=== PATIENT | female | born 1930 | race Caucasian/White ===

== ENCOUNTER 2018-11-13 18:24 | Emergency (ER) | payer MEDICAID, MEDICARE ==
--- NOTE | 2018-11-13 19:10 | EDM.PDOC ---
ED HPI GENERAL MEDICAL PROBLEM - General Chief Complaint: Head Injury Stated Complaint: MED VIA NORTH Time Seen by Provider: 11/13/18 19:03 Source of Information: Reports: Patient, Family, RN Notes Reviewed History Limitations: Reports: No Limitations, Physical Impairment - History of Present Illness INITIAL COMMENTS - FREE TEXT/NARRATIVE: 88-year-old female presents to the emergency department today following a fall in the long term she does have a history of dementia is currently on Coumadin or atrial fibrillation arrived by EMS she is complaining of neck pain no other symptoms at this time - Related Data Allergies Allergy/AdvReac Type Severity Reaction Status Date / Time RED Inhibitors Allergy Cannot Verified 08/23/18 11:23 Remember acetaminophen Allergy Cannot Verified 08/23/18 11:23 [From Coricidin] Remember amlodipine [From Norvasc] Allergy Cannot Verified 08/23/18 11:23 Remember chlorpheniramine Allergy Cannot Verified 08/23/18 11:23 [From Coricidin] Remember citalopram [From Celexa] Allergy Cannot Verified 08/23/18 11:23 Remember phenylephrine Allergy Cannot Verified 08/23/18 11:23 Remember phenylpropanolamine Allergy Cannot Verified 08/23/18 11:23 [From Coricidin] Remember sertraline [From Zoloft] Allergy Cannot Verified 08/23/18 11:23 Remember Home Meds: Home Meds Acetaminophen [Tylenol] 500 mg PO BID 08/23/18 [History] Carvedilol [Coreg] 12.5 mg PO BID 08/23/18 [History] Cholecalciferol (Vitamin D3) [Vitamin D3] 1,000 unit PO DAILY 08/23/18 [History] FLUoxetine [PROzac] 20 mg PO DAILY 08/23/18 [History] Lactose-Reduced Food [Ensure] 118 ml PO BID 08/23/18 [History] Magnesium Hydroxide [Milk of Magnesia] 30 ml PO DAILY PRN 08/23/18 [History] Pravastatin Sodium [Pravastatin (Pravachol)] 1 tab PO DAILY 08/23/18 [History] Warfarin [Coumadin] 1.25 mg PO ASDIRECTED 08/23/18 [History] Warfarin [Coumadin] 2.5 mg PO ASDIRECTED 08/23/18 [History] Past Medical History HEENT History: Reports: Impaired Vision Cardiovascular History: Reports: Afib, CAD, Heart Failure, High Cholesterol, Pacemaker, Other (See Below) Other Cardiovascular History: thoracic aortic atherosclerosis Respiratory History: Reports: COPD Genitourinary History: Reports: Other (See Below) Other Genitourinary History: kidney disease 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: Musculoskeletal History: Reports: Osteoarthritis Psychiatric History: Reports: Anxiety, Dementia, Depression - Infectious Disease History Infectious Disease History: Reports: Chicken Pox - Past Surgical History GI Surgical History: Reports: Colonoscopy Social & Family History - Tobacco Use Smoking Status *Q: Never Smoker - Caffeine Use Caffeine Use: Reports: Coffee - Recreational Drug Use Recreational Drug Use: No ED ROS GENERAL - Review of Systems Review Of Systems: See Below Constitutional: Reports: No Symptoms Respiratory: Reports: No Symptoms Cardiovascular: Reports: Dyspnea on Exertion GI/Abdominal: Reports: No Symptoms Musculoskeletal: Reports: Neck Pain ED EXAM, HEAD INJURY - Physical Exam Exam: See Below Exam Limited By: Physical Impairment General Appearance: Alert, No Apparent Distress Head: Atraumatic, Normocephalic Nexus Criteria: Posterior, Midline Cervical Tenderness. No: Evidence of Intoxication, Altered Level of Consciousness, Focal Neurological Deficit, Painful Distraction Injuries Eyes: Bilateral Eye: EOMI, Normal Inspection, PERRL Ears: Normal External Exam, Normal Canal, Hearing Grossly Normal, Normal TMs Nose: Normal Inspection, Normal Mucousa, No Blood Throat/Mouth: Normal Inspection, Normal Lips, Normal Teeth, Normal Gums, Normal Oropharynx, Normal Voice, No Airway Compromise Neck: Normal Inspection Respiratory: No Respiratory Distress, Lungs Clear, Normal Breath Sounds, No Accessory Muscle Use Cardiovascular: Irregularly Irregular GI/Abdominal Exam: Soft, Non-Tender Course - Vital Signs Last Recorded V/S: Last Vital Signs Temp 97.7 F 11/13/18 18:40 Pulse 72 11/13/18 18:40 Resp 16 11/13/18 18:40 BP 162/101 H 11/13/18 18:40 Pulse Ox 98 11/13/18 18:40 Departure - Departure Time of Disposition: 21:15 Disposition: Home, Self-Care 01 Condition: Fair Clinical Impression: Head injury Qualifiers: Encounter type: initial encounter Qualified Code(s): S09.90XA - Unspecified injury of head, initial encounter - Discharge Information Referrals: Mag Robb PA [Primary Care Provider] - Forms: ED Department Discharge Additional Instructions: Follow-up with primary care as needed call return to the emergency department worsening of symptoms - Assessment/Plan Plan: Assessment Acuity = acute Site and laterality = head injury Etiology = secondary to a fall Manifestations = none Location of injury = Home Lab values = CT scan of the head and neck show no acute process Plan Discharge to long term follow-up primary care as needed This note was dictated using [employer] voice recognition software please call with any questions on syntax or grammar.
--- NOTE | 2018-11-13 20:50 | CRLCT ---
INDICATION: Fall with neck pain TECHNIQUE: CT cervical spine without contrast. COMPARISON: None FINDINGS: Vertebrae: Alignment is normal. There are no fractures or suspicious bony lesions. Discs and facet joints: There are degenerative disc changes most severe at C3-4, C4-5, C5-6 and C6-7. There are multilevel degenerative changes in the facets. Extraspinal findings: Paraspinous soft tissues are unremarkable. IMPRESSION: 1. No sign of acute injury. 2. Multilevel degenerative spondylosis. Dictated by Obinna Travis MD @ 11/13/2018 8:49:00 PM Please note that all CT scans at this facility use dose modulation, iterative reconstruction, and/or weight-based dosing when appropriate to reduce radiation dose to as low as reasonably achievable. Dictated by: Obinna Travis MD @ 11/13/2018 20:49:06 (Electronically Signed)
--- NOTE | 2018-11-13 20:54 | CRLCT ---
INDICATION: Fall and pain TECHNIQUE: Head CT without contrast. COMPARISON: None. FINDINGS: CSF spaces: Within normal limits for age. Brain parenchyma: There are nonspecific low attenuation white matter changes consistent with chronic microvascular disease. No sign of mass, hemorrhage, or midline shift. Skull base and calvarium: The visualized paranasal sinuses and mastoid air cells are clear. The visualized orbits are grossly unremarkable. No skull fractures. There is intracranial atherosclerosis. IMPRESSION: 1. No acute findings. 2. Nonspecific white matter disease, typical of chronic microvascular disease. Please note that all CT scans at this facility use dose modulation, iterative reconstruction, and/or weight-based dosing when appropriate to reduce radiation dose to as low as reasonably achievable. Dictated by: Obinna Travis MD @ 11/13/2018 20:53:09 (Electronically Signed)
== END 2018-11-13 21:26 | disposition home or self-care (01) ==
LOC: JP.ED 18:24
DX: S09.90XA Unspecified injury of head, initial encounter (principal); F41.9 Anxiety disorder, unspecified; I48.91 Unspecified atrial fibrillation; I50.9 Heart failure, unspecified; J44.9 Chronic obstructive pulmonary disease, unspecified; Z88.8 Allergy status to other drugs, medicaments and biological substances; Z88.6 Allergy status to analgesic agent; Z79.899 Other long term (current) drug therapy; Z79.01 Long term (current) use of anticoagulants; W19.XXXA Unspecified fall, initial encounter; Y92.009 Unspecified place in unspecified non-institutional (private) residence as the place of occurrence of the external cause; Y92.129 Unspecified place in nursing home as the place of occurrence of the external cause
CPT/HCPCS: 70450; 72125; 99282; 99284-25

== ENCOUNTER 2019-01-09 14:55 | Emergency (ER) | payer MEDICARE ==
--- NOTE | 2019-01-09 15:34 | CRLCR ---
Indication: Candace, hypoxia Technique: Chest 1 view Comparison: None Findings/Impression: Cardiomegaly. Dual lead left pacemaker present with lead tips projecting over the right atrium and right ventricle. The pace maker wires appear intact. Normal pulmonary vasculature. No effusion, pneumothorax, or focal infiltrate. Osteopenia. Degenerative changes in the spine. Dictated by Gloria Butler MD @ Jan 09 2019 3:32PM Signed by Dr. Gloria Butler @ Jan 09 2019 3:33PM
--- NOTE | 2019-01-09 16:00 | EDM.PDOC ---
ED HPI GENERAL MEDICAL PROBLEM - General Chief Complaint: Respiratory Problem Stated Complaint: MEDICAL VIA [facility] Time Seen by Provider: 01/09/19 15:10 Source of Information: Reports: Patient, EMS, Family History Limitations: Reports: No Limitations - History of Present Illness INITIAL COMMENTS - FREE TEXT/NARRATIVE: 88-year-old female who had a coughing spell at her assisted living, had difficulty breathing so the ambulance was called. It was felt be EMS she was likely in pulmonary edema so in route she was given IV nitroglycerin and aspirin. Her symptoms resolved in transfer, and according to the daughter this happen several times yearly. Apparently there is an anxiety component as well. The patient now complains of no pain, shortness of breath, cough or fever. She arrived with CPAP in place as well as IV nitroglycerin at 80 mcg/m. 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) (iV nitroglycerin) denies Pain Score (Numeric/FACES): 0 - Related Data Allergies Allergy/AdvReac Type Severity Reaction Status Date / Time RED Inhibitors Allergy Cannot Verified 01/09/19 15:08 Remember acetaminophen Allergy Cannot Verified 01/09/19 15:08 [From Coricidin] Remember amlodipine [From Norvasc] Allergy Cannot Verified 01/09/19 15:08 Remember chlorpheniramine Allergy Cannot Verified 01/09/19 15:08 [From Coricidin] Remember citalopram [From Celexa] Allergy Cannot Verified 01/09/19 15:08 Remember phenylephrine Allergy Cannot Verified 01/09/19 15:08 Remember phenylpropanolamine Allergy Cannot Verified 01/09/19 15:08 [From Coricidin] Remember sertraline [From Zoloft] Allergy Cannot Verified 01/09/19 15:08 Remember Home Meds: Home Meds Acetaminophen [Tylenol] 500 mg PO BID 08/23/18 [History] Carvedilol [Coreg] 12.5 mg PO BID 08/23/18 [History] Cholecalciferol (Vitamin D3) [Vitamin D3] 1,000 unit PO DAILY 08/23/18 [History] FLUoxetine [PROzac] 20 mg PO DAILY 08/23/18 [History] Lactose-Reduced Food [Ensure] 118 ml PO BID 08/23/18 [History] Magnesium Hydroxide [Milk of Magnesia] 30 ml PO DAILY PRN 08/23/18 [History] Pravastatin Sodium [Pravastatin (Pravachol)] 1 tab PO DAILY 08/23/18 [History] Warfarin [Coumadin] 2.5 mg PO ASDIRECTED 08/23/18 [History] Warfarin [Coumadin] 2.5 mg PO ASDIRECTED 08/23/18 [History] Past Medical History HEENT History: Reports: Impaired Vision Cardiovascular History: Reports: Afib, CAD, Heart Failure, High Cholesterol, Pacemaker, Other (See Below) Other Cardiovascular History: thoracic aortic atherosclerosis Respiratory History: Reports: COPD Genitourinary History: Reports: Other (See Below) Other Genitourinary History: kidney disease 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: Musculoskeletal History: Reports: Osteoarthritis Psychiatric History: Reports: Anxiety, Dementia, Depression - Infectious Disease History Infectious Disease History: Reports: Chicken Pox, Measles, Mumps - Past Surgical History GI Surgical History: Reports: Colonoscopy Social & Family History - Tobacco Use Smoking Status *Q: Never Smoker Second Hand Smoke Exposure: No - Caffeine Use Caffeine Use: Reports: Coffee - Recreational Drug Use Recreational Drug Use: No ED ROS GENERAL - Review of Systems Review Of Systems: See Below Constitutional: Denies: Fever, Chills HEENT: Reports: No Symptoms Respiratory: Reports: Shortness of Breath, Cough Cardiovascular: Denies: Chest Pain, Palpitations GI/Abdominal: Denies: Abdominal Pain, Nausea, Vomiting : Reports: No Symptoms Skin: Reports: No Symptoms Psychiatric: Reports: Anxiety ED EXAM, GENERAL - Physical Exam Exam: See Below Exam Limited By: No Limitations General Appearance: Alert, No Apparent Distress Throat/Mouth: Normal Inspection Head: Atraumatic Respiratory/Chest: No Respiratory Distress, Wheezing (A few scattered expiratory wheezes are heard but otherwise good air movement and no basilar rales) Cardiovascular: Irregularly Irregular GI/Abdominal: Soft, Non-Tender Extremities: Normal Inspection. No: Pedal Edema Neurological: Alert, Confused (Some chronic baseline confusion) Psychiatric: Normal Affect, Normal Mood Skin Exam: Warm, Dry Course - Vital Signs Last Recorded V/S: Last Vital Signs Temp 96.4 F 01/09/19 15:20 Pulse 89 01/09/19 16:00 Resp 20 01/09/19 16:00 BP 114/82 01/09/19 16:00 Pulse Ox 93 L 01/09/19 16:00 - Orders/Labs/Meds Labs: Laboratory Tests 01/09/19 01/09/19 Range/Units 15:00 15:00 WBC 8.7 (4.5-11.0) K/uL RBC 4.05 (3.30-5.50) M/uL Hgb 12.2 (12.0-15.0) g/dL Hct 38.9 (36.0-48.0) % MCV 96 (80-98) fL MCH 30 (27-31) pg MCHC 31 L (32-36) % Plt Count 163 (150-400) K/uL Neut % (Auto) 55 (36-66) % Lymph % (Auto) 32 (24-44) % [place] % (Auto) 11 H (2-6) % Eos % (Auto) 1 L (2-4) % Baso % (Auto) 1 (0-1) % Sodium 138 L (140-148) mmol/L Potassium 5.1 (3.6-5.2) mmol/L Chloride 102 (100-108) mmol/L Carbon Dioxide 31 (21-32) mmol/L Anion Gap 10.1 (5.0-14.0) mmol/L BUN 29 H (7-18) mg/dL Creatinine 1.3 H (0.6-1.0) mg/dL Est Cr Clr Drug Dosing 20.38 mL/min Estimated GFR (MDRD) 39 L (>60) Glucose 130 H (74-106) mg/dL Calcium 9.1 (8.5-10.1) mg/dL Troponin I 0.020 (0.000-0.056) ng/mL - Re-Assessments/Exams Free Text/Narrative Re-Assessment/Exam: 01/09/19 15:58 On arrival to CPAP was removed and nitroglycerin stopped. She remained stable and asymptomatic. A chest x-ray showed cardiomegaly but no congestive heart failure or effusions. Troponin was 0.02, electrolytes were basically normal. Her daughter was comfortable taking her back without treatment. Departure - Departure Time of Disposition: 16:23 Disposition: DC/Tfer to Humanities Coordinator [facility] 62 Clinical Impression: Dyspnea Qualifiers: Dyspnea type: shortness of breath Qualified Code(s): R06.02 - Shortness of breath - Discharge Information Instructions: Shortness of Breath, Adult, [id number] Referrals: Mag Robb PA [Primary Care Provider] - Forms: ED Department Discharge Care Plan Goals: Continue current treatments and medications. Consider 2 puffs of an albuterol inhaler for shortness of breath or wheezing prior to transfer if symptoms recur.
== END 2019-01-09 16:23 ==
LOC: JP.ED 14:55
DX: R06.02 Shortness of breath (principal); F41.9 Anxiety disorder, unspecified; F32.9 Major depressive disorder, single episode, unspecified; I48.91 Unspecified atrial fibrillation; I50.9 Heart failure, unspecified; I25.10 Atherosclerotic heart disease of native coronary artery without angina pectoris; J44.9 Chronic obstructive pulmonary disease, unspecified; Z79.899 Other long term (current) drug therapy; Z88.8 Allergy status to other drugs, medicaments and biological substances; Z88.6 Allergy status to analgesic agent
CPT/HCPCS: 36415; 71045; 80048; 84484; 85025; 99284-25

== ENCOUNTER 2019-02-26 10:51 | Inpatient (IN) | payer MEDICARE ==
--- NOTE | 2019-02-26 11:40 | EDM.PDOC ---
ED HPI GENERAL MEDICAL PROBLEM - General Chief Complaint: Lower Extremity Injury/Pain Stated Complaint: FELL X2 LAST NIGHT INJURED HIP Time Seen by Provider: 02/26/19 11:21 Source of Information: Reports: Family History Limitations: Reports: Other (dementia) - History of Present Illness INITIAL COMMENTS - FREE TEXT/NARRATIVE: Fell two times in NH yesterday; usually up walking with walker however unable to bear weight; has dementia; poor historian Onset Date: 02/25/19 Location: Reports: Pelvis, Other (bilateral hips) Quality: Reports: Sharp, Stabbing Severity: Moderate Improves with: Reports: None Worsens with: Reports: None Left Hip Pain Score (Numeric/FACES): 8 - Related Data Allergies Allergy/AdvReac Type Severity Reaction Status Date / Time RED Inhibitors Allergy Cannot Verified 02/26/19 11:17 Remember acetaminophen Allergy Cannot Verified 02/26/19 11:17 [From Coricidin] Remember amlodipine [From Norvasc] Allergy Cannot Verified 02/26/19 11:17 Remember chlorpheniramine Allergy Cannot Verified 02/26/19 11:17 [From Coricidin] Remember citalopram [From Celexa] Allergy Cannot Verified 02/26/19 11:17 Remember phenylephrine Allergy Cannot Verified 02/26/19 11:17 Remember phenylpropanolamine Allergy Cannot Verified 02/26/19 11:17 [From Coricidin] Remember sertraline [From Zoloft] Allergy Cannot Verified 02/26/19 11:17 Remember Home Meds: Home Meds Acetaminophen [Tylenol] 500 mg PO BID 08/23/18 [History] Carvedilol [Coreg] 12.5 mg PO BID 08/23/18 [History] Cholecalciferol (Vitamin D3) [Vitamin D3] 1,000 unit PO DAILY 08/23/18 [History] FLUoxetine [PROzac] 20 mg PO DAILY 08/23/18 [History] Lactose-Reduced Food [Ensure] 118 ml PO BID 08/23/18 [History] Magnesium Hydroxide [Milk of Magnesia] 30 ml PO DAILY PRN 08/23/18 [History] Pravastatin Sodium [Pravastatin (Pravachol)] 1 tab PO DAILY 08/23/18 [History] Warfarin [Coumadin] 2.5 mg PO ASDIRECTED 08/23/18 [History] Warfarin [Coumadin] 3.75 mg PO ASDIRECTED 08/23/18 [History] Albuterol [Ventolin HFA] 1 - 2 puff .XX Q4H PRN 02/26/19 [History] Past Medical History HEENT History: Reports: Impaired Vision Cardiovascular History: Reports: Afib, CAD, Heart Failure, High Cholesterol, Pacemaker, Other (See Below) Other Cardiovascular History: thoracic aortic atherosclerosis Respiratory History: Reports: COPD Genitourinary History: Reports: Other (See Below) Other Genitourinary History: kidney disease 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: Musculoskeletal History: Reports: Osteoarthritis Psychiatric History: Reports: Anxiety, Dementia, Depression - Infectious Disease History Infectious Disease History: Reports: C-Difficile - Past Surgical History GI Surgical History: Reports: Colonoscopy Social & Family History - Tobacco Use Smoking Status *Q: Never Smoker Second Hand Smoke Exposure: No - Caffeine Use Caffeine Use: Reports: Coffee, Soda - Recreational Drug Use Recreational Drug Use: No Review of Systems - Review of Systems Review Of Systems: Unable To Obtain (patient has dementia; poor historian) ED EXAM, GENERAL - Physical Exam Exam: See Below Exam Limited By: Altered Mental Status (dementia) General Appearance: Moderate Distress (with movement), Other (doesn't open eyes with command, moans) Head: Atraumatic, Normocephalic Neck: Normal Inspection, Supple, Non-Tender Respiratory/Chest: No Respiratory Distress Cardiovascular: Regular Rate, Rhythm, Systolic Murmur Peripheral Pulses: 2+: Posterior Tibial (L), Posterior Tibial (R), Dorsalis Pedis (L), Dorsalis Pedis (R) GI/Abdominal: Normal Bowel Sounds, Soft, No Mass Back Exam: Normal Inspection Extremities: Normal Inspection Neurological: Other (dementia; doesn't answer questions, moans with movement; doesn't follow command) Skin Exam: Warm, Dry, Intact, Normal Color Course - Vital Signs Last Recorded V/S: Last Vital Signs Temp 98.1 F 02/26/19 17:41 Pulse 90 02/26/19 17:41 Resp 18 02/26/19 17:41 BP 155/94 H 02/26/19 17:41 Pulse Ox 93 L 02/26/19 17:41 - Orders/Labs/Meds Orders: Active Orders 24 hr Category Date Time Status Peripheral IV Care [RC] . DIRECTED Care 02/26/19 12:25 Active Hip Min 2V or 3V Lt [CR] Stat Exams 02/26/19 11:33 Taken UA W/MICROSCOPIC [URIN] Stat Lab 02/26/19 16:50 Ordered Sodium Chloride 0.9% [Saline Flush] Med 02/26/19 12:24 Active 10 ml FLUSH ASDIRECTED PRN Peripheral IV Insertion Adult [OM.PC] Stat Oth 02/26/19 12:24 Ordered Medication Orders Acetaminophen (Tylenol Extra Strength) 1,000 mg PO TID AMBER Carvedilol (Coreg) 12.5 mg PO BID AMBER Fluoxetine HCl (Prozac) 20 mg PO DAILY AMBER Magnesium Hydroxide (Milk Of Magnesia) 30 ml PO Q12H PRN PRN Reason: Constipation Melatonin (Melatonin) 9 mg PO BEDTIME AMBER Ondansetron HCl (Zofran Odt) 4 mg PO Q6H PRN PRN Reason: Nausea able to take PO Ondansetron HCl (Zofran) 4 mg IV Q6H PRN PRN Reason: Nausea/Vomiting Oxycodone HCl (Oxycodone) 5 mg PO Q4H PRN PRN Reason: Pain Pravastatin Sodium (Pravachol) 40 mg PO DAILY AMBER Senna/Docusate Sodium (Senna Plus) 1 tab PO BID PRN PRN Reason: Constipation Sodium Chloride (Saline Flush) 10 ml FLUSH ASDIRECTED PRN PRN Reason: Keep Vein Open Last Admin: 02/26/19 13:00 Dose: 10 ml Labs: Laboratory Tests 02/26/19 02/26/19 02/26/19 Range/Units 16:37 16:37 16:37 WBC 13.6 H (4.5-11.0) K/uL RBC 3.86 (3.30-5.50) M/uL Hgb 11.5 L (12.0-15.0) g/dL Hct 36.5 (36.0-48.0) % MCV 95 (80-98) fL MCH 30 (27-31) pg MCHC 32 (32-36) % Plt Count 151 (150-400) K/uL Neut % (Auto) 50 (36-66) % Lymph % (Auto) 35 (24-44) % [place] % (Auto) 10 H (2-6) % Eos % (Auto) 4 (2-4) % Baso % (Auto) 1 (0-1) % PT 28.2 H (9.5-12.0) sec INR 2.71 H (0.80-1.20) Sodium 142 (140-148) mmol/L Potassium 3.9 (3.6-5.2) mmol/L Chloride 105 (100-108) mmol/L Carbon Dioxide 28 (21-32) mmol/L Anion Gap 9.3 (5.0-14.0) mmol/L BUN 29 H (7-18) mg/dL Creatinine 1.3 H (0.6-1.0) mg/dL Est Cr Clr Drug Dosing 19.96 mL/min Estimated GFR (MDRD) 39 L (>60) Glucose 106 (74-106) mg/dL Calcium 8.7 (8.5-10.1) mg/dL Meds: Medications Generic Name Dose Route Start Last Admin Trade Name Freq PRN Reason Stop Dose Admin Acetaminophen 1,000 mg 02/26/19 21:00 Tylenol Extra Strength PO TID ON LICENSE OF [facility] Carvedilol 12.5 mg 02/26/19 21:00 Coreg PO BID AMBER Fluoxetine HCl 20 mg 02/27/19 09:00 Prozac PO DAILY AMBER Magnesium Hydroxide 30 ml 02/26/19 19:12 Milk Of Magnesia PO Q12H PRN Constipation Melatonin 9 mg 02/26/19 21:00 Melatonin PO BEDTIME AMBER Ondansetron HCl 4 mg 02/26/19 19:12 Zofran Odt PO Q6H PRN Nausea able to take PO Ondansetron HCl 4 mg 02/26/19 19:12 Zofran IV Q6H PRN Nausea/Vomiting Oxycodone HCl 5 mg 02/26/19 19:12 Oxycodone PO Q4H PRN Pain Pravastatin Sodium 40 mg 02/27/19 09:00 Pravachol PO DAILY ON LICENSE OF [facility] Senna/Docusate Sodium 1 tab 02/26/19 19:12 Senna Plus PO BID PRN Constipation Sodium Chloride 10 ml 02/26/19 12:24 02/26/19 13:00 Saline Flush FLUSH 10 ml ASDIRECTED PRN Administration Keep Vein Open Discontinued Medications Generic Name Dose Route Start Last Admin Trade Name Freq PRN Reason Stop Dose Admin Morphine Sulfate 2 mg 02/26/19 12:24 02/26/19 13:03 Morphine IVPUSH 02/26/19 12:25 2 mg ONETIME ONE Administration Morphine Sulfate 1 mg 02/26/19 16:11 Morphine IVPUSH 02/26/19 16:12 ONETIME ONE - Radiology Interpretation Free Text/Narrative:: Bilateral pubic ramus fracture per xray; will get CT to see if it is displaced. Family member notified; CT Results Date: 02/26/19 (non displaced ramus fx) - Re-Assessments/Exams Free Text/Narrative Re-Assessment/Exam: 02/26/19 19:28 CT shows non displaced ramus fracture. Will admit for pain control Departure - Departure Time of Disposition: 16:51 Disposition: Refer to Observation Condition: Fair Clinical Impression: Pubic ramus fracture Qualifiers: Encounter type: initial encounter Fracture type: closed Laterality: left Qualified Code(s): S32.592A - Other specified fracture of left pubis, initial encounter for closed fracture - Discharge Information *PRESCRIPTION DRUG MONITORING PROGRAM REVIEWED*: No *COPY OF PRESCRIPTION DRUG MONITORING REPORT IN PATIENT JACE: No - Problem List & Annotations (1) Pubic ramus fracture SNOMED Code(s): 12589646 Code(s): S32.599A - OTH FRACTURE OF UNSP PUBIS, INIT ENCNTR FOR CLOSED FRACTURE Status: Acute Priority: Medium Current Visit: Yes Qualifiers: Encounter type: initial encounter Fracture type: closed Laterality: left Qualified Code(s): S32.592A - Other specified fracture of left pubis, initial encounter for closed fracture - My Orders Last 24 Hours: My Active Orders 02/26/19 11:33 Hip Min 2V or 3V Lt [CR] Stat 02/26/19 12:24 Sodium Chloride 0.9% [Saline Flush] 10 ml FLUSH ASDIRECTED PRN Peripheral IV Insertion Adult [OM.PC] Stat 02/26/19 12:25 Peripheral IV Care [RC] . DIRECTED - Assessment/Plan Last 24 Hours: My Active Orders 02/26/19 11:33 Hip Min 2V or 3V Lt [CR] Stat 02/26/19 12:24 Sodium Chloride 0.9% [Saline Flush] 10 ml FLUSH ASDIRECTED PRN Peripheral IV Insertion Adult [OM.PC] Stat 02/26/19 12:25 Peripheral IV Care [RC] . DIRECTED
[2019-02-26] MEDS ORDERED: Sodium Chloride 0.9% 10 ML Syringe FLUSH PRN (12:24)
[2019-02-26] MEDS ORDERED: Morphine 2 MG/ML Syringe IVPUSH ONE ×2 (12:24→16:11)
--- NOTE | 2019-02-26 13:28 | CRLCR ---
INDICATION: Pain following fall TECHNIQUE: AP pelvis and two views right left hips COMPARISON: None FINDINGS: Bones: Po bilateral superior pubic ramus fractures adjacent to the symphysis pubis. Joint spaces: Severe bilateral hip joint space narrowing with acetabular roof spurs. Soft tissues: Unremarkable. IMPRESSION: Bilateral superior pubic ramus fractures adjacent to the symphysis pubis. Bilateral hip joint degenerative changes. Dictated by Vinny Bang MD @ 02/26/2019 1:28:17 PM Dictated by: Vinny Bang MD @ 02/26/2019 13:28:24 (Electronically Signed)
--- NOTE | 2019-02-26 15:36 | CRLCT ---
HISTORY: Pelvis fracture. TECHNIQUE: CT pelvis without contrast. COMPARISON: Radiographs same day. FINDINGS: Nondisplaced acute fracture of the left inferior pubic ramus. Acute fracture of the left superior pubic ramus and pubic body. A few small cortical fragments it is from the pubic body are mildly displaced. No significant displacement otherwise. No proximal femur fracture. Severe osteoarthritis both hips, left greater than right. Degenerative changes of the pubic symphysis. No pubic symphysis widening or malalignment. Degenerative arthrosis of both sacroiliac joints. Lower lumbar spine disc and facet degenerative changes. Osteopenia. No lytic or blastic bone lesions. Mild fat stranding around the left pubic bone. No significant soft tissue hematoma. Atrophy of the gluteus minimus muscle bilaterally. Atherosclerotic calcifications. Colonic diverticulosis. IMPRESSION: 1. Nondisplaced acute fractures of the left superior pubic ramus, left pubic body, and left inferior pubic ramus. 2. Severe osteoarthritis of both hips, left greater than right. Dictated by Neymar Cullen MD @ 02/26/2019 3:34:27 PM Please note that all CT scans at this facility use dose modulation, iterative reconstruction, and/or weight-based dosing when appropriate to reduce radiation dose to as low as reasonably achievable. Dictated by: Neymar Cullen MD @ 02/26/2019 15:34:38 (Electronically Signed)
--- NOTE | 2019-02-26 17:02 | PCM.HP ---
H&P History of Present Illness - General Date of Service: 02/26/19 Admit Problem/Dx: Admission Diagnosis/Problem Admission Diagnosis/Problem Fracture of pelvis Source of Information: Family. No: Patient History Limitations: Reports: Altered Mental Status (dementia) - History of Present Illness Initial Comments - Free Text/Narative: CC: can't walk HPI: Kim presents to the emergency room today with left groin pain after 2 falls yesterday. She has advanced dementia and cannot provide reliable history. Per report from her daughter, the patient had 2 falls yesterday but seemed okay afterwards. Today at her assisted-living facility she had a great deal of difficulty bearing weight and appeared to be uncomfortable. She was sent to the emergency room for evaluation. X-ray imaging revealed a left superior ramus fracture and this was confirmed with a CT scan. The fracture is nondisplaced. The patient was able to tell me that she's having some discomfort in the left groin area but is not able to quantify or characterize the pain. She just tells me that it hurts down here and rubs her hand over the anterior left groin area. She doesn't think that she is short of breath. She does not currently report abdominal pain. Workup in the emergency room has revealed a pelvis fracture. The patient is not able to receive adequate care at her assisted-living facility. She will be admitted for pain control and physical therapy. Left Hip Pain Score (Numeric/FACES): 8 - Related Data Allergies/Adverse Reactions: Allergies Allergy/AdvReac Type Severity Reaction Status Date / Time RED Inhibitors Allergy Cannot Verified 02/26/19 11:17 Remember acetaminophen Allergy Cannot Verified 02/26/19 11:17 [From Coricidin] Remember amlodipine [From Norvasc] Allergy Cannot Verified 02/26/19 11:17 Remember chlorpheniramine Allergy Cannot Verified 02/26/19 11:17 [From Coricidin] Remember citalopram [From Celexa] Allergy Cannot Verified 02/26/19 11:17 Remember phenylephrine Allergy Cannot Verified 02/26/19 11:17 Remember phenylpropanolamine Allergy Cannot Verified 02/26/19 11:17 [From Coricidin] Remember sertraline [From Zoloft] Allergy Cannot Verified 02/26/19 11:17 Remember Home Medications: Home Meds Acetaminophen [Tylenol] 500 mg PO BID 08/23/18 [History] Carvedilol [Coreg] 12.5 mg PO BID 08/23/18 [History] Cholecalciferol (Vitamin D3) [Vitamin D3] 1,000 unit PO DAILY 08/23/18 [History] FLUoxetine [PROzac] 20 mg PO DAILY 08/23/18 [History] Lactose-Reduced Food [Ensure] 118 ml PO BID 08/23/18 [History] Magnesium Hydroxide [Milk of Magnesia] 30 ml PO DAILY PRN 08/23/18 [History] Pravastatin Sodium [Pravastatin (Pravachol)] 1 tab PO DAILY 08/23/18 [History] Warfarin [Coumadin] 2.5 mg PO ASDIRECTED 08/23/18 [History] Warfarin [Coumadin] 3.75 mg PO ASDIRECTED 08/23/18 [History] Albuterol [Ventolin HFA] 1 - 2 puff .XX Q4H PRN 02/26/19 [History] Past Medical History HEENT History: Reports: Impaired Vision Cardiovascular History: Reports: Afib, CAD, Heart Failure, High Cholesterol, Pacemaker, Other (See Below) Other Cardiovascular History: thoracic aortic atherosclerosis Respiratory History: Reports: COPD Genitourinary History: Reports: Other (See Below) Other Genitourinary History: kidney disease [employer] History: Reports: Musculoskeletal History: Reports: Osteoarthritis Psychiatric History: Reports: Anxiety, Dementia, Depression - Infectious Disease History Infectious Disease History: Reports: C-Difficile - Past Surgical History GI Surgical History: Reports: Colonoscopy Social & Family History - Family History Musculoskeletal: Reports: RA (daughter) - Tobacco Use Smoking Status *Q: Never Smoker Second Hand Smoke Exposure: No - Caffeine Use Caffeine Use: Reports: Coffee, Soda - Alcohol Use Alcohol Use History: No - Recreational Drug Use Recreational Drug Use: No H&P Review of Systems - Review of Systems: Review Of Systems: Unable To Obtain (advanced dementia, hx unreliable) Exam - Exam Exam: See Below - Vital Signs Vital Signs: Last Vital Signs Temp 35.5 C 02/26/19 15:55 Pulse 95 02/26/19 15:55 Resp 16 02/26/19 15:55 BP 148/103 H 02/26/19 15:55 Pulse Ox 93 L 02/26/19 15:55 Weight: 43.091 kg - Exam Quality Assessment: No: Supplemental Oxygen General: Alert, Cooperative. No: Oriented, Mild Distress HEENT: Conjunctiva Clear. No: Mucosa Moist & [place] (dry), Scleral Icterus Neck: Supple, Trachea Midline. No: Lymphadenopathy Lungs: Clear to Auscultation, Normal Respiratory Effort Cardiovascular: Regular Rate, Regular Rhythm, Systolic Murmur GI/Abdominal Exam: Normal Bowel Sounds, Soft, No Distention, Tender (mild generalized ) Extremities: No Pedal Edema. No: Increased Warmth Peripheral Pulses: 2+: Dorsalis Pedis (L), Dorsalis Pedis (R) Skin: Warm, Dry Neuro Extensive - Mental Status: Alert, Nl Response to Commands. No: Oriented x3 Neuro Extensive - Motor, Sensory, Reflexes: No: Dysarthria, Abnormal Motor, Tremor Psychiatric: Alert, Normal Affect. No: Agitated - Patient Data Lab Results Last 24 hrs: Laboratory Results - last 24 hr 02/26/19 02/26/19 02/26/19 Range/Units 16:37 16:37 16:37 WBC 13.6 H (4.5-11.0) K/uL RBC 3.86 (3.30-5.50) M/uL Hgb 11.5 L (12.0-15.0) g/dL Hct 36.5 (36.0-48.0) % MCV 95 (80-98) fL MCH 30 (27-31) pg MCHC 32 (32-36) % Plt Count 151 (150-400) K/uL Neut % (Auto) 50 (36-66) % Lymph % (Auto) 35 (24-44) % [place] % (Auto) 10 H (2-6) % Eos % (Auto) 4 (2-4) % Baso % (Auto) 1 (0-1) % PT 28.2 H (9.5-12.0) sec INR 2.71 H (0.80-1.20) Sodium 142 (140-148) mmol/L Potassium 3.9 (3.6-5.2) mmol/L Chloride 105 (100-108) mmol/L Carbon Dioxide 28 (21-32) mmol/L Anion Gap 9.3 (5.0-14.0) mmol/L BUN 29 H (7-18) mg/dL Creatinine 1.3 H (0.6-1.0) mg/dL Est Cr Clr Drug Dosing 19.96 mL/min Estimated GFR (MDRD) 39 L (>60) Glucose 106 (74-106) mg/dL Calcium 8.7 (8.5-10.1) mg/dL Result Diagrams: 02/26/19 16:37 02/26/19 16:37 Imaging Impressions Last 24 hrs: Pelvis XR - images personally reviewed - there is a fracture of the left superior pubic ramus Pelvis CT - Images also personally reviewed - non-displaced left superior pubic ramus fracture *Q Meaningful Use (ADM) - VTE Risk Assess *Q Each Risk Factor Represents 1 Point: Congestive heart failure (CHF) Total Score 1 Point Risk Factors: 1 Each Risk Factor Represents 2 Points: None Total Score 2 Point Risk Factors: 0 Each Risk Factor Represents 3 Points: Age 75 Years or Greater Total Score 3 Point Risk Factors: 3 Each Risk Factor Represents 5 Points: Hip, Pelvis or Leg Fracture, Less than 1 month Total Score 5 Point Risk Factors: 5 Venous Thromboembolism Risk Factor Score *Q: 9 - Problem List (1) Pubic ramus fracture SNOMED Code(s): 37448160 ICD Code: S32.599A - OT FRACTURE OF UNSP PUBIS, INIT ENCNTR FOR CLOSED FRACTURE Status: Acute Priority: Medium Current Visit: Yes Qualifiers: Encounter type: initial encounter Fracture type: closed Laterality: left Qualified Code(s): S32.592A - Other specified fracture of left pubis, initial encounter for closed fracture (2) Alzheimer's dementia without behavioral disturbance SNOMED Code(s): 12003887 ICD Code: G30.9 - ALZHEIMER'S DISEASE, UNSPECIFIED; F02.80 - DEMENTIA IN OTH DISEASES CLASSD ELSWHR W/O BEHAVRL DISTURB Status: Chronic Current Visit: Yes Qualifiers: Alzheimer's disease onset: late-onset Qualified Code(s): G30.1 - Alzheimer' s disease with late onset; F02.80 - Dementia in other diseases classified elsewhere without behavioral disturbance (3) CHF (congestive heart failure) SNOMED Code(s): 91897467 ICD Code: I50.9 - HEART FAILURE, UNSPECIFIED Status: Chronic Current Visit: Yes Qualifiers: Heart failure type: unspecified Heart failure chronicity: chronic Qualified Code(s): I50.9 - Heart failure, unspecified (4) Chronic atrial fibrillation SNOMED Code(s): 259645524 ICD Code: I48.2 - CHRONIC ATRIAL FIBRILLATION Status: Chronic Current Visit: Yes Problem List Initiated/Reviewed/Updated: Yes Orders Last 24hrs: Active Orders 24 hr Category Date Time Status Patient Status Manage Transfer [TRANSFER] Routine ADT 02/26/19 16:52 Ordered Peripheral IV Care [RC] . DIRECTED Care 02/26/19 12:25 Active Hip Min 2V or 3V Lt [CR] Stat Exams 02/26/19 11:33 Ordered UA W/MICROSCOPIC [URIN] Stat Lab 02/26/19 16:50 Ordered Sodium Chloride 0.9% [Saline Flush] Med 02/26/19 12:24 Active 10 ml FLUSH ASDIRECTED PRN Peripheral IV Insertion Adult [OM.PC] Stat Oth 02/26/19 12:24 Ordered Resuscitation Status Routine Resus Stat 02/26/19 16:53 Ordered Medication Orders Sodium Chloride (Saline Flush) 10 ml FLUSH ASDIRECTED PRN PRN Reason: Keep Vein Open Last Admin: 02/26/19 13:00 Dose: 10 ml Assessment/Plan Comment:: ASSESSMENT AND PLAN - Nondisplaced traumatic fracture of the left superior pubic ramus - secondary to fall at her assisted-living yesterday. The patient is not able to bear any weight. She has required IV medications for pain control. With her advanced dementia and advanced age I believe it may take several days to find an appropriate pain control regimen as well as a safe discharge plan. -Scheduled acetaminophen -As needed oxycodone -Weightbearing as tolerated -Physical therapy -Discharge planning consultation for probable senior living placement Advanced dementia, Alzheimer's - no behavioral disturbances at this time. Patient is a high fall risk. She has had some mood swings lately and this has been a sign of urinary tract infection in the past. -Urine sample to rule out infection -Melatonin at bedtime -Consider low-dose Haldol if she becomes agitated Congestive heart failure - history of, well compensated at this time. -Continue carvedilol Chronic atrial fibrillation - currently rate controlled. Chronically anticoagulated. INR is therapeutic. -Hold warfarin today -INR tomorrow and reassess warfarin dosing then Maintenance issues - - DVT prophylaxis - warfarin - GI prophylaxis - not indicated - Nutrition - regular - Silva catheter - not indicated CODE STATUS - DNR/DNI per advance directive and discussion with daughter Admission justification - This patient will be admitted for inpatient services and is medically appropriate meeting medical necessity for inpatient admission as outlined in my documentation. I reasonably expect the patient will require inpatient services that span a period time over 2 midnights. I reasonably expect this patient to be discharged or transferred within 96 hours after admission to the [facility]. The patient has required IV pain medications in the emergency room, she is of advanced age and has Alzheimer's dementia. Both of the above issues will complicate managing her pelvic fracture and complicate her recovery and her hospital stay. Disposition - I would anticipate discharge to a [facility] facility for subacute rehabilitation Primary care physician - Mag Victor M.D.
[2019-02-26] MEDS ORDERED: Magnesium Hydroxide 400 MG/5 ML Susp 30 ML Cup PO PRN (19:12)
[2019-02-26] MEDS ORDERED: Ondansetron 4 MG Tab.DIS PO PRN (19:12)
[2019-02-26] MEDS ORDERED: Ondansetron 4 MG/2 ML SDV IV PRN (19:12)
[2019-02-26] MEDS ORDERED: Haloperidol Lactate 5 MG/ML SDV IVPUSH PRN (20:06)
[2019-02-26] MEDS: Morphine 2 MG/ML Syringe IVPUSH PRN (20:28)
[2019-02-26] MEDS: Melatonin 3 MG Tab PO SCH (20:28)
[2019-02-26] MEDS: oxyCODONE 5 MG Tab PO PRN (20:28)
[2019-02-26] MEDS: Acetaminophen 500 MG Tab PO SCH (20:29)
[2019-02-26] MEDS: Carvedilol 12.5 MG Tab PO SCH (20:29)
[2019-02-27] MEDS: Morphine 2 MG/ML Syringe IVPUSH PRN ×3 (00:04→21:49)
[2019-02-27] MEDS: Carvedilol 12.5 MG Tab PO SCH ×3 (08:50→20:23)
[2019-02-27] MEDS: Pravastatin 20 MG Tab PO SCH (08:51)
[2019-02-27] MEDS: Acetaminophen 500 MG Tab PO SCH ×4 (08:51→20:24)
[2019-02-27] MEDS: FLUoxetine 20 MG Cap PO SCH (08:51)
[2019-02-27] MEDS: oxyCODONE 5 MG Tab PO PRN (08:54)
--- NOTE | 2019-02-27 10:07 | PCM.PN ---
- General Info Date of Service: 02/27/19 Subjective Update: No acute events overnight. Pt lethargic and not able to provide reliable hx this morning. She received several doses of oral and IV pain medication overnight. She appears comfortable this morning but falls asleep fairly quickly after waking up to checked. She has not had any fevers. Urine sample did not suggest infection. She has not been out of bed yet today. Has not had anything to eat. - Review of Systems General: Denies: Fever - Patient Data Vitals - Most Recent: Last Vital Signs Temp 36.2 C 02/27/19 09:30 Pulse 130 H 02/27/19 09:30 Resp 18 02/27/19 09:30 BP 189/120 H 02/27/19 09:30 Pulse Ox 94 L 02/27/19 09:30 Weight - Most Recent: 43.091 kg Lab Results Last 24 Hours: Laboratory Results - last 24 hr 02/26/19 02/26/19 02/26/19 Range/Units 16:37 16:37 16:37 WBC 13.6 H (4.5-11.0) K/uL RBC 3.86 (3.30-5.50) M/uL Hgb 11.5 L (12.0-15.0) g/dL Hct 36.5 (36.0-48.0) % MCV 95 (80-98) fL MCH 30 (27-31) pg MCHC 32 (32-36) % Plt Count 151 (150-400) K/uL Neut % (Auto) 50 (36-66) % Lymph % (Auto) 35 (24-44) % [place] % (Auto) 10 H (2-6) % Eos % (Auto) 4 (2-4) % Baso % (Auto) 1 (0-1) % PT 28.2 H (9.5-12.0) sec INR 2.71 H (0.80-1.20) Sodium 142 (140-148) mmol/L Potassium 3.9 (3.6-5.2) mmol/L Chloride 105 (100-108) mmol/L Carbon Dioxide 28 (21-32) mmol/L Anion Gap 9.3 (5.0-14.0) mmol/L BUN 29 H (7-18) mg/dL Creatinine 1.3 H (0.6-1.0) mg/dL Est Cr Clr Drug Dosing 19.96 mL/min Estimated GFR (MDRD) 39 L (>60) Glucose 106 (74-106) mg/dL Calcium 8.7 (8.5-10.1) mg/dL Urine Color Urine Appearance Urine pH (4.5-8.0) Ur Specific [place] (1.008-1.030) Urine Protein (NEGATIVE) mg/dL Urine Glucose (UA) (NEGATIVE) mg/dL Urine Ketones (NEGATIVE) mg/dL Urine Occult Blood (NEGATIVE) Urine Nitrite (NEGATIVE) Urine Bilirubin (NEGATIVE) Urine Urobilinogen (NORMAL) mg/dL Ur Leukocyte Esterase (NEGATIVE) Urine RBC (0-5) Urine WBC (0-5) Ur Epithelial Cells Amorphous Sediment Urine Bacteria Urine Mucus 02/26/19 02/27/19 02/27/19 Range/Units 22:16 05:54 05:54 WBC 12.7 H (4.5-11.0) K/uL RBC 3.81 (3.30-5.50) M/uL Hgb 11.5 L (12.0-15.0) g/dL Hct 36.2 (36.0-48.0) % MCV 95 (80-98) fL MCH 30 (27-31) pg MCHC 32 (32-36) % Plt Count 138 L (150-400) K/uL Neut % (Auto) (36-66) % Lymph % (Auto) (24-44) % [place] % (Auto) (2-6) % Eos % (Auto) (2-4) % Baso % (Auto) (0-1) % PT (9.5-12.0) sec INR (0.80-1.20) Sodium 142 (140-148) mmol/L Potassium 4.2 (3.6-5.2) mmol/L Chloride 106 (100-108) mmol/L Carbon Dioxide 27 (21-32) mmol/L Anion Gap 9.2 (5.0-14.0) mmol/L BUN 30 H (7-18) mg/dL Creatinine 1.2 H (0.6-1.0) mg/dL Est Cr Clr Drug Dosing 21.62 mL/min Estimated GFR (MDRD) 42 L (>60) Glucose 99 (74-106) mg/dL Calcium 8.9 (8.5-10.1) mg/dL Urine Color Yellow Urine Appearance Clear Urine pH 5.0 (4.5-8.0) Ur Specific [place] 1.015 (1.008-1.030) Urine Protein Negative (NEGATIVE) mg/dL Urine Glucose (UA) Normal (NEGATIVE) mg/dL Urine Ketones Negative (NEGATIVE) mg/dL Urine Occult Blood Negative (NEGATIVE) Urine Nitrite Negative (NEGATIVE) Urine Bilirubin Negative (NEGATIVE) Urine Urobilinogen Normal (NORMAL) mg/dL Ur Leukocyte Esterase Negative (NEGATIVE) Urine RBC Not seen (0-5) Urine WBC Not seen (0-5) Ur Epithelial Cells Not seen Amorphous Sediment Few Urine Bacteria Not seen Urine Mucus Not seen Med Orders - Current: Current Medications Acetaminophen (Tylenol Extra Strength) 1,000 mg PO TID [facility] Last Admin: 02/27/19 08:51 Dose: 1,000 mg Carvedilol (Coreg) 12.5 mg PO BID [facility] Last Admin: 02/27/19 08:50 Dose: 12.5 mg Fluoxetine HCl (Prozac) 20 mg PO DAILY [facility] Last Admin: 02/27/19 08:51 Dose: 20 mg Haloperidol Lactate (Haldol) 1 mg IVPUSH Q4H PRN PRN Reason: Agitation Magnesium Hydroxide (Milk Of Magnesia) 30 ml PO Q12H PRN PRN Reason: Constipation Melatonin (Melatonin) 9 mg PO BEDTIME [facility] Last Admin: 02/26/19 20:28 Dose: 9 mg Morphine Sulfate (Morphine) 2 mg IVPUSH Q2H PRN PRN Reason: Pain (severe 7-10) Last Admin: 02/27/19 04:01 Dose: 2 mg Ondansetron HCl (Zofran Odt) 4 mg PO Q6H PRN PRN Reason: Nausea able to take PO Ondansetron HCl (Zofran) 4 mg IV Q6H PRN PRN Reason: Nausea/Vomiting Oxycodone HCl (Oxycodone) 5 mg PO Q4H PRN PRN Reason: Pain Last Admin: 02/27/19 08:54 Dose: 5 mg Pravastatin Sodium (Pravachol) 40 mg PO DAILY [facility] Last Admin: 02/27/19 08:51 Dose: 40 mg Senna/Docusate Sodium (Senna Plus) 1 tab PO BID PRN PRN Reason: Constipation Sodium Chloride (Saline Flush) 10 ml FLUSH ASDIRECTED PRN PRN Reason: Keep Vein Open Last Admin: 02/26/19 13:00 Dose: 10 ml Discontinued Medications Morphine Sulfate (Morphine) 2 mg IVPUSH ONETIME ONE Stop: 02/26/19 12:25 Last Admin: 02/26/19 13:03 Dose: 2 mg Morphine Sulfate (Morphine) 1 mg IVPUSH ONETIME ONE Stop: 02/26/19 16:12 Last Admin: 02/27/19 08:28 Dose: Not Given - Exam Quality Assessment: No: Supplemental Oxygen General: Alert, No Acute Distress, Lethargic. No: Oriented, Cooperative HEENT: Pupils Equal Lungs: Clear to Auscultation, Normal Respiratory Effort Cardiovascular: Irregular Rhythm, Tachycardia GI/Abdominal Exam: Normal Bowel Sounds, Soft, Non-Tender, No Distention Extremities: No Pedal Edema. No: Increased Warmth Skin: Warm, Dry Psy/Mental Status: Alert. No: Agitated - Problem List & Annotations (1) Pubic ramus fracture SNOMED Code(s): 41113670 Code(s): S32.599A - OT FRACTURE OF UNSP PUBIS, INIT ENCNTR FOR CLOSED FRACTURE Status: Acute Priority: Medium Current Visit: Yes Qualifiers: Encounter type: initial encounter Fracture type: closed Laterality: left Qualified Code(s): S32.592A - Other specified fracture of left pubis, initial encounter for closed fracture (2) Alzheimer's dementia without behavioral disturbance SNOMED Code(s): 69369019 Code(s): G30.9 - ALZHEIMER'S DISEASE, UNSPECIFIED; F02.80 - DEMENTIA IN OTH DISEASES CLASSD ELSWHR W/O BEHAVRL DISTURB Status: Chronic Current Visit: Yes Qualifiers: Alzheimer's disease onset: late-onset Qualified Code(s): G30.1 - Alzheimer' s disease with late onset; F02.80 - Dementia in other diseases classified elsewhere without behavioral disturbance (3) CHF (congestive heart failure) SNOMED Code(s): 06823876 Code(s): I50.9 - HEART FAILURE, UNSPECIFIED Status: Chronic Current Visit : Yes Qualifiers: Heart failure type: unspecified Heart failure chronicity: chronic Qualified Code(s): I50.9 - Heart failure, unspecified (4) Chronic atrial fibrillation SNOMED Code(s): 431508182 Code(s): I48.2 - CHRONIC ATRIAL FIBRILLATION Status: Chronic Current Visit: Yes - Problem List Review Problem List Initiated/Reviewed/Updated: Yes - My Orders Last 24 Hours: My Active Orders 02/26/19 16:53 Resuscitation Status Routine 02/26/19 19:12 Patient Status [ADT] Routine Intake and Output [RC] QSHIFT Notify Provider Vital Signs [RC] ASDIRECTED Oxygen Therapy [RC] PRN Up With Assistance [RC] ASDIRECTED VTE/DVT Education [RC] Per Unit Routine Vital Signs [RC] Q4H Docusate Sodium/Sennosides [Senna Plus] 1 tab PO BID PRN Magnesium Hydroxide [Milk of Magnesia] 30 ml PO Q12H PRN Ondansetron [Zofran ODT] 4 mg PO Q6H PRN Ondansetron [Zofran] 4 mg IV Q6H PRN oxyCODONE 5 mg PO Q4H PRN 02/26/19 20:06 Haloperidol Lactate [Haldol] 1 mg IVPUSH Q4H PRN Morphine 2 mg IVPUSH Q2H PRN 02/26/19 21:00 Acetaminophen [Tylenol Extra Strength] 1,000 mg PO TID Carvedilol [Coreg] 12.5 mg PO BID Melatonin 9 mg PO BEDTIME 02/26/19 Dinner Regular Diet [DIET] 02/27/19 07:00 PT Evaluation and Treatment [CONS] Routine 02/27/19 09:00 FLUoxetine [PROzac] 20 mg PO DAILY Pravastatin [Pravachol] 40 mg PO DAILY 02/28/19 05:00 BASIC METABOLIC PANEL,BMP [CHEM] Timed CBC W/O DIFF,HEMOGRAM [HEME] Timed (1) - Plan Plan:: ASSESSMENT AND PLAN - Nondisplaced traumatic fracture of the left superior and inferior pubic rami - secondary to fall at her home/assisted living. Still not able to bear weight. Somewhat sleepy probably from the pain medications. -Scheduled acetaminophen -As needed tramadol -Low-dose morphine for severe pain -Weightbearing as tolerated -Physical therapy -Discharge planning consultation for probable prison placement Advanced dementia, Alzheimer's - no behavioral disturbances at this time. Patient is a high fall risk. No evidence for infection. -Melatonin at bedtime -Consider low-dose Haldol if she becomes agitated Congestive heart failure - history of, well compensated at this time. -Continue carvedilol Chronic atrial fibrillation - currently rate controlled. Chronically anticoagulated. INR is therapeutic. -Hold warfarin today -INR tomorrow and reassess warfarin dosing then Maintenance issues - - DVT prophylaxis - warfarin - GI prophylaxis - not indicated - Nutrition - regular Disposition - I would anticipate discharge to a detention facility for subacute rehabilitation Primary care physician - Mag Victor M.D.
[2019-02-27] MEDS ORDERED: traMADol 50 MG Tab PO PRN (13:50)
[2019-02-27] MEDS ORDERED: Sodium Chloride 0.9% 1,000 ML IV SCH (17:30)
[2019-02-27] MEDS: Sodium Chloride 0.9% 1,000 ML IV SCH (19:58)
[2019-02-27] MEDS: Melatonin 3 MG Tab PO SCH ×2 (20:10→20:24)
[2019-02-27] MEDS ORDERED: Labetalol 20 MG/4 ML Syringe IVPUSH ONE (20:24)
[2019-02-27] MEDS: hydrALAZINE 20 MG/ML SDV IVPUSH SCH (23:24)
[2019-02-28] MEDS: Morphine 2 MG/ML Syringe IVPUSH PRN ×3 (00:08→14:33)
[2019-02-28] MEDS: LORazepam 2 MG/ML SDV IVPUSH PRN ×3 (01:37→17:10)
[2019-02-28] MEDS: hydrALAZINE 20 MG/ML SDV IVPUSH SCH ×4 (05:02→22:49)
[2019-02-28] MEDS: Sodium Chloride 0.9% 1,000 ML IV SCH (05:13)
--- NOTE | 2019-02-28 10:10 | PCM.PN ---
- General Info Date of Service: 02/28/19 Subjective Update: Overnight patient had difficulty with hypertension with both systolic and diastolic hypertension. This did not respond to labetalol or hydralazine. She continues to be fairly sleepy and has not been able to take her pills. Because of her somnolence she is not able to provide any usable history. Pain medications have been minimal. She does appear comfortable. Her daughter reports that during times of stress she often has episodes like this where she becomes very somnolent and these can last 2-3 days. Functional Status: Reports: Other (lethargic) - Review of Systems General: Denies: Fever - Patient Data Vitals - Most Recent: Last Vital Signs Temp 36.3 C 02/28/19 07:00 Pulse 125 H 02/28/19 07:00 Resp 20 02/28/19 07:00 BP 185/128 H 02/28/19 07:00 Pulse Ox 91 L 02/28/19 07:00 Weight - Most Recent: 43.091 kg I&O - Last 24 Hours: Intake & Output 02/27/19 02/28/19 02/28/19 22:59 06:59 14:59 Intake Total 1000 915 Output Total 50 25 Balance 950 890 Lab Results Last 24 Hours: Laboratory Results - last 24 hr 02/28/19 02/28/19 Range/Units 05:40 05:40 WBC 18.5 H (4.5-11.0) K/uL RBC 3.68 (3.30-5.50) M/uL Hgb 11.5 L (12.0-15.0) g/dL Hct 34.6 L (36.0-48.0) % MCV 94 (80-98) fL MCH 31 (27-31) pg MCHC 33 (32-36) % Plt Count 157 (150-400) K/uL Sodium 144 (140-148) mmol/L Potassium 4.2 (3.6-5.2) mmol/L Chloride 109 H (100-108) mmol/L Carbon Dioxide 22 (21-32) mmol/L Anion Gap 17.2 H (5.0-14.0) mmol/L BUN 30 H (7-18) mg/dL Creatinine 1.1 H (0.6-1.0) mg/dL Est Cr Clr Drug Dosing 23.58 mL/min Estimated GFR (MDRD) 47 L (>60) Glucose 139 H (74-106) mg/dL Calcium 8.6 (8.5-10.1) mg/dL Med Orders - Current: Current Medications Acetaminophen (Tylenol Extra Strength) 1,000 mg PO TID [facility] Last Admin: 02/27/19 20:24 Dose: Not Given Carvedilol (Coreg) 12.5 mg PO BID [facility] Last Admin: 02/27/19 20:23 Dose: Not Given Fluoxetine HCl (Prozac) 20 mg PO DAILY [facility] Last Admin: 02/27/19 08:51 Dose: 20 mg Haloperidol Lactate (Haldol) 1 mg IVPUSH Q4H PRN PRN Reason: Agitation Last Admin: 02/27/19 23:11 Dose: 1 mg Hydralazine HCl (Apresoline) 5 mg IVPUSH Q6H [facility] Last Admin: 02/28/19 05:02 Dose: 5 mg Potassium Chloride/Dextrose/Sod Cl (D5 1/2 Ns W/ 20 Meq/L Kcl) 1,000 mls @ 75 mls/hr IV ASDIRECTED [facility] Lorazepam (Ativan) 0.5 mg IVPUSH Q4H PRN PRN Reason: Anxiety Last Admin: 02/28/19 08:57 Dose: 0.5 mg Magnesium Hydroxide (Milk Of Magnesia) 30 ml PO Q12H PRN PRN Reason: Constipation Melatonin (Melatonin) 9 mg PO BEDTIME [facility] Last Admin: 02/27/19 20:24 Dose: Not Given Metoprolol Tartrate (Lopressor) 5 mg IVPUSH ONETIME ONE Stop: 02/28/19 10:08 Morphine Sulfate (Morphine) 1 mg IVPUSH Q2H PRN PRN Reason: Pain (severe 7-10) Last Admin: 02/28/19 05:46 Dose: 1 mg Ondansetron HCl (Zofran Odt) 4 mg PO Q6H PRN PRN Reason: Nausea able to take PO Ondansetron HCl (Zofran) 4 mg IV Q6H PRN PRN Reason: Nausea/Vomiting Last Admin: 02/28/19 00:48 Dose: 4 mg Pravastatin Sodium (Pravachol) 40 mg PO DAILY [facility] Last Admin: 02/27/19 08:51 Dose: 40 mg Senna/Docusate Sodium (Senna Plus) 1 tab PO BID PRN PRN Reason: Constipation Sodium Chloride (Saline Flush) 10 ml FLUSH ASDIRECTED PRN PRN Reason: Keep Vein Open Last Admin: 02/26/19 13:00 Dose: 10 ml Tramadol HCl (Ultram) 50 mg PO Q8H PRN PRN Reason: Pain Discontinued Medications Sodium Chloride (Normal Saline) 1,000 mls @ 100 mls/hr IV ASDIRECTED [facility] Last Admin: 02/28/19 05:13 Dose: 100 mls/hr Sodium Chloride (Normal Saline) 1,000 mls @ 500 mls/hr IV ASDIRECTED [facility] Stop: 02/27/19 18:31 Last Admin: 02/27/19 17:40 Dose: 500 mls/hr Labetalol HCl (Normodyne) 10 mg IVPUSH ONETIME ONE; Protocol Stop: 02/27/19 20:25 Last Admin: 02/27/19 21:12 Dose: 10 mg Morphine Sulfate (Morphine) 2 mg IVPUSH ONETIME ONE Stop: 02/26/19 12:25 Last Admin: 02/26/19 13:03 Dose: 2 mg Morphine Sulfate (Morphine) 1 mg IVPUSH ONETIME ONE Stop: 02/26/19 16:12 Last Admin: 02/27/19 08:28 Dose: Not Given Morphine Sulfate (Morphine) 2 mg IVPUSH Q2H PRN PRN Reason: Pain (severe 7-10) Last Admin: 02/27/19 04:01 Dose: 2 mg Oxycodone HCl (Oxycodone) 5 mg PO Q4H PRN PRN Reason: Pain Last Admin: 02/27/19 08:54 Dose: 5 mg - Exam Quality Assessment: No: Supplemental Oxygen General: Alert, No Acute Distress, Lethargic. No: Cooperative HEENT: Pupils Equal Lungs: Clear to Auscultation, Normal Respiratory Effort Cardiovascular: Irregular Rhythm, Tachycardia GI/Abdominal Exam: Normal Bowel Sounds, Soft, Non-Tender, No Distention Extremities: No Pedal Edema. No: Increased Warmth Skin: Warm, Dry Neurological: No New Focal Deficit, Other (moving all four extremities, does not follow commands) Psy/Mental Status: Alert. No: Agitated - Problem List & Annotations (1) Pubic ramus fracture SNOMED Code(s): 93615861 Code(s): S32.599A - OTH FRACTURE OF UNSP PUBIS, INIT ENCNTR FOR CLOSED FRACTURE Status: Acute Priority: Medium Current Visit: Yes Qualifiers: Encounter type: initial encounter Fracture type: closed Laterality: left Qualified Code(s): S32.592A - Other specified fracture of left pubis, initial encounter for closed fracture (2) Alzheimer's dementia without behavioral disturbance SNOMED Code(s): 63395443 Code(s): G30.9 - ALZHEIMER'S DISEASE, UNSPECIFIED; F02.80 - DEMENTIA IN OTH DISEASES CLASSD ELSWHR W/O BEHAVRL DISTURB Status: Chronic Current Visit: Yes Qualifiers: Alzheimer's disease onset: late-onset Qualified Code(s): G30.1 - Alzheimer' s disease with late onset; F02.80 - Dementia in other diseases classified elsewhere without behavioral disturbance (3) CHF (congestive heart failure) SNOMED Code(s): 22649731 Code(s): I50.9 - HEART FAILURE, UNSPECIFIED Status: Chronic Current Visit : Yes Qualifiers: Heart failure type: unspecified Heart failure chronicity: chronic Qualified Code(s): I50.9 - Heart failure, unspecified (4) Chronic atrial fibrillation SNOMED Code(s): 758650246 Code(s): I48.2 - CHRONIC ATRIAL FIBRILLATION Status: Chronic Current Visit: Yes - Problem List Review Problem List Initiated/Reviewed/Updated: Yes - My Orders Last 24 Hours: My Active Orders 02/27/19 13:50 traMADol [Ultram] 50 mg PO Q8H PRN 02/27/19 14:00 Morphine 1 mg IVPUSH Q2H PRN 02/27/19 23:00 hydrALAZINE [Apresoline] 5 mg IVPUSH Q6H 02/28/19 01:24 LORazepam [Ativan] 0.5 mg IVPUSH Q4H PRN 02/28/19 10:07 Metoprolol Tartrate [Lopressor] 5 mg IVPUSH ONETIME ONE 02/28/19 10:15 Dextrose 5%-1/2 Normal Saline with KCl 20 mEq @ 75 mL/Hr (1000 mL) D5 1/2 NS w / 20 mEq/L KCl 1,000 ml IV ASDIRECTED 03/01/19 05:00 BASIC METABOLIC PANEL,BMP [CHEM] Timed CBC W/O DIFF,HEMOGRAM [HEME] Timed (1) - Plan Plan:: ASSESSMENT AND PLAN - Nondisplaced traumatic fracture of the left superior and inferior pubic rami - secondary to fall at her home/assisted living. Too somnolent to ambulate or work with physical therapy at this time. Somnolence likely an effect of stress in the setting of dementia. -Scheduled acetaminophen -As needed tramadol -Low-dose morphine for severe pain -Weightbearing as tolerated -Physical therapy -Discharge planning consultation for probable skilled nursing placement Advanced dementia, Alzheimer's - no behavioral disturbances at this time. Patient is a high fall risk. No evidence for infection. -Melatonin at bedtime -Consider low-dose Haldol if she becomes agitated Congestive heart failure - history of, well compensated at this time. She is mildly tachycardic with her atrial fibrillation but has not been able to take her oral medications. -Trial of IV metoprolol -Continue carvedilol If able to take her pills Chronic atrial fibrillation - rate control suboptimal. Chronically anticoagulated. warfarin has been on hold because she has been unable to take her medications. -INR tomorrow and reassess warfarin dosing then Maintenance issues - - DVT prophylaxis - warfarin - GI prophylaxis - not indicated - Nutrition - regular Disposition - I would anticipate discharge to a snf facility for subacute rehabilitation Primary care physician - Mag Victor M.D.
[2019-02-28] MEDS ORDERED: Metoprolol Tartrate 5 MG/5 ML SDV IVPUSH ONE (10:30)
[2019-02-28] MEDS: Pravastatin 20 MG Tab PO SCH (10:35)
[2019-02-28] MEDS: Carvedilol 12.5 MG Tab PO SCH ×2 (10:35→21:08)
[2019-02-28] MEDS: FLUoxetine 20 MG Cap PO SCH (10:36)
[2019-02-28] MEDS: Acetaminophen 500 MG Tab PO SCH ×3 (10:36→21:09)
[2019-02-28] MEDS: D5 1/2 NS w/ 20 mEq/L KCl 1,000 ML IV SCH (12:43)
[2019-02-28] MEDS: Melatonin 3 MG Tab PO SCH (21:08)
[2019-03-01] MEDS: D5 1/2 NS w/ 20 mEq/L KCl 1,000 ML IV SCH (02:07)
[2019-03-01] MEDS: hydrALAZINE 20 MG/ML SDV IVPUSH SCH ×2 (05:02→11:30)
[2019-03-01] MEDS: Carvedilol 12.5 MG Tab PO SCH (08:05)
[2019-03-01] MEDS: FLUoxetine 20 MG Cap PO SCH (09:38)
[2019-03-01] MEDS: Acetaminophen 500 MG Tab PO SCH (09:38)
[2019-03-01] MEDS: Pravastatin 20 MG Tab PO SCH (09:38)
--- NOTE | 2019-03-01 10:16 | PCM.DCSUM1 ---
Discharge Summary - Hospital Course Brief History: 88-year-old female with history of Alzheimer's dementia, compensated congestive heart failure and chronic atrial fibrillation who presented with left groin pain after 2 falls at her assisted-living facility. She was admitted for management of a fracture on the left side. Diagnosis: Stroke: No - Discharge Data Discharge Date: 03/01/19 Discharge Disposition: DC/Tfer to SNF 03 Condition: Fair - Discharge Diagnosis/Problem(s) (1) Pubic ramus fracture SNOMED Code(s): 51777663 ICD Code: S32.599A - OTH FRACTURE OF UNSP PUBIS, INIT ENCNTR FOR CLOSED FRACTURE Status: Acute Priority: Medium Current Visit: Yes Qualifiers: Encounter type: initial encounter Fracture type: closed Laterality: left Qualified Code(s): S32.592A - Other specified fracture of left pubis, initial encounter for closed fracture (2) Alzheimer's dementia without behavioral disturbance SNOMED Code(s): 84308634 ICD Code: G30.9 - ALZHEIMER'S DISEASE, UNSPECIFIED; F02.80 - DEMENTIA IN OTH DISEASES CLASSD ELSWHR W/O BEHAVRL DISTURB Status: Chronic Current Visit: Yes Qualifiers: Alzheimer's disease onset: late-onset Qualified Code(s): G30.1 - Alzheimer' s disease with late onset; F02.80 - Dementia in other diseases classified elsewhere without behavioral disturbance (3) CHF (congestive heart failure) SNOMED Code(s): 73670578 ICD Code: I50.9 - HEART FAILURE, UNSPECIFIED Status: Chronic Current Visit: Yes Qualifiers: Heart failure type: unspecified Heart failure chronicity: chronic Qualified Code(s): I50.9 - Heart failure, unspecified (4) Chronic atrial fibrillation SNOMED Code(s): 173906229 ICD Code: I48.2 - CHRONIC ATRIAL FIBRILLATION Status: Chronic Current Visit: Yes - Patient Summary/Data Consults: Consultations 02/27/19 07:00 PT Evaluation and Treatment [CONS] Routine Please Evaluate and Treat. PT Reason for Consult: Strengthening This query below is only for informational purposes and is not editable. Hospital Course: Kim presented to the emergency room with left groin pain the day after having 2 falls at her assisted-living facility. Imaging in the emergency room revealed evidence for a fracture involving the left superior and inferior pubic rami. She was not able to bear weight and was not thought to be safe to return to her assisted-living facility. She was admitted to the hospital for pain control. She was started on scheduled acetaminophen and as needed oxycodone as well as morphine for severe pain. Baseline laboratory studies showed a therapeutic INR and no evidence for infection on the urine sample. Overnight following admission she became very somnolent. Vital signs were relatively stable during the first 24 hours but then she developed accelerated hypertension when she had not received her carvedilol. We did try a couple different IV medications without any improvement in her blood pressure. On discussion with her daughter revealed that this is not unusual for her when she has periods of significant stress. She becomes very somnolent and hypertensive and this last for a couple of days and then suddenly resolves. As her daughter predicted about 36 hours later the patient woke up and was back to her usual self. Her blood pressure normalized. We have had good pain control utilizing tramadol and scheduled acetaminophen. Her INR is nearly therapeutic despite not having warfarin for the past 2 days. I believe should benefit from subacute rehabilitation and she will be discharged to the transitional care unit at [facility]. She is safe and stable for transfer at this time. She will be working with physical therapy and occupational therapy at the half-way with the goal of returning to her assisted-living facility after her rehabilitation. She does have a leukocytosis noted on laboratory studies on the day of discharge but I suspect this is related to stress from the fracture. She has not had any fevers. Urine sample was clear. Her lungs have been clear. Examination benign. - Patient Instructions Diet: Regular Diet as Tolerated Activity: As Tolerated Showering/Bathing: May Shower Notify Provider of: Fever, Increased Pain Other/Special Instructions: 1. You were in the hospital for management of a left pelvic fracture involving your superior and inferior pubic rami. We have achieved good pain control utilizing scheduled acetaminophen and as needed tramadol. Your activity may be up as tolerated. 2. Continue your usual home medications as previously prescribed including the warfarin. You will need your INR checked next Monday, March 05. 3. Code status - DNR/DNI. 4. Referral to Physical and occupational therapy for strengthening of the setting of a left- sided pelvic fracture. 5. Seek medical attention if fever greater than 101, severe pain or if you develop persistent vomiting or severe diarrhea. - Discharge Plan *PRESCRIPTION DRUG MONITORING PROGRAM REVIEWED*: No *COPY OF PRESCRIPTION DRUG MONITORING REPORT IN PATIENT JACE: No Prescriptions/Med Rec: Acetaminophen [Tylenol Extra Strength] 1,000 mg PO TID #200 tablet Melatonin 10 mg PO BEDTIME #30 tablet traMADol [Ultram] 50 mg PO Q8H PRN #45 tablet PRN Reason: Pain Home Medications: Home Meds Carvedilol [Coreg] 12.5 mg PO BID 08/23/18 [History] Cholecalciferol (Vitamin D3) [Vitamin D3] 1,000 unit PO DAILY 08/23/18 [History] FLUoxetine [PROzac] 20 mg PO DAILY 08/23/18 [History] Lactose-Reduced Food [Ensure] 118 ml PO BID 08/23/18 [History] Magnesium Hydroxide [Milk of Magnesia] 30 ml PO DAILY PRN 08/23/18 [History] Pravastatin Sodium [Pravastatin (Pravachol)] 1 tab PO DAILY 08/23/18 [History] Warfarin [Coumadin] 2.5 mg PO ASDIRECTED 08/23/18 [History] Warfarin [Coumadin] 3.75 mg PO ASDIRECTED 08/23/18 [History] Albuterol [Ventolin HFA] 1 - 2 puff .XX Q4H PRN 02/26/19 [History] Acetaminophen [Tylenol Extra Strength] 1,000 mg PO TID #200 tablet 03/01/19 [Rx] Melatonin 10 mg PO BEDTIME #30 tablet 03/01/19 [Rx] traMADol [Ultram] 50 mg PO Q8H PRN #45 tablet 03/01/19 [Rx] Oxygen Therapy Mode: Room Air Patient Handouts: Simple Pelvic Fracture, Adult Referrals: PCP,None [Primary Care Provider] - (f/u as needed after the hospital stay ) - Discharge Summary/Plan Comment DC Time >30 min.: Yes (45 - new half-way discharge) - Patient Data Vitals - Most Recent: Last Vital Signs Temp 36.2 C 03/01/19 03:00 Pulse 112 H 03/01/19 08:05 Resp 20 03/01/19 05:14 BP 142/85 H 03/01/19 08:05 Pulse Ox 90 L 03/01/19 05:14 Weight - Most Recent: 43.091 kg I&O - Last 24 hours: Intake & Output 02/28/19 03/01/19 03/01/19 22:59 06:59 14:59 Intake Total 750 835 20 Balance 750 835 20 Lab Results - Last 24 hrs: Laboratory Results - last 24 hr 03/01/19 03/01/19 03/01/19 Range/Units 05:56 05:56 05:56 WBC 19.3 H (4.5-11.0) K/uL RBC 3.66 (3.30-5.50) M/uL Hgb 10.9 L (12.0-15.0) g/dL Hct 34.7 L (36.0-48.0) % MCV 95 (80-98) fL MCH 30 (27-31) pg MCHC 31 L (32-36) % Plt Count 166 (150-400) K/uL PT 27.7 H (9.5-12.0) sec INR 2.66 H (0.80-1.20) Sodium 144 (140-148) mmol/L Potassium 3.9 (3.6-5.2) mmol/L Chloride 109 H (100-108) mmol/L Carbon Dioxide 24 (21-32) mmol/L Anion Gap 14.9 H (5.0-14.0) mmol/L BUN 28 H (7-18) mg/dL Creatinine 1.0 (0.6-1.0) mg/dL Est Cr Clr Drug Dosing 25.94 mL/min Estimated GFR (MDRD) 52 L (>60) Glucose 146 H (74-106) mg/dL Calcium 8.6 (8.5-10.1) mg/dL Med Orders - Current: Current Medications Acetaminophen (Tylenol Extra Strength) 1,000 mg PO TID [facility] Last Admin: 03/01/19 09:38 Dose: Not Given Carvedilol (Coreg) 12.5 mg PO BID [facility] Last Admin: 03/01/19 08:05 Dose: 12.5 mg Fluoxetine HCl (Prozac) 20 mg PO DAILY [facility] Last Admin: 03/01/19 09:38 Dose: Not Given Haloperidol Lactate (Haldol) 1 mg IVPUSH Q4H PRN PRN Reason: Agitation Last Admin: 02/27/19 23:11 Dose: 1 mg Hydralazine HCl (Apresoline) 5 mg IVPUSH Q6H [facility] Last Admin: 03/01/19 05:02 Dose: 5 mg Potassium Chloride/Dextrose/Sod Cl (D5 1/2 Ns W/ 20 Meq/L Kcl) 1,000 mls @ 75 mls/hr IV ASDIRECTED [facility] Last Admin: 03/01/19 02:07 Dose: 75 mls/hr Lorazepam (Ativan) 0.5 mg IVPUSH Q4H PRN PRN Reason: Anxiety Last Admin: 02/28/19 17:10 Dose: 0.5 mg Magnesium Hydroxide (Milk Of Magnesia) 30 ml PO Q12H PRN PRN Reason: Constipation Melatonin (Melatonin) 9 mg PO BEDTIME [facility] Last Admin: 02/28/19 21:08 Dose: Not Given Morphine Sulfate (Morphine) 1 mg IVPUSH Q2H PRN PRN Reason: Pain (severe 7-10) Last Admin: 02/28/19 14:33 Dose: 1 mg Ondansetron HCl (Zofran Odt) 4 mg PO Q6H PRN PRN Reason: Nausea able to take PO Ondansetron HCl (Zofran) 4 mg IV Q6H PRN PRN Reason: Nausea/Vomiting Last Admin: 02/28/19 00:48 Dose: 4 mg Pravastatin Sodium (Pravachol) 40 mg PO DAILY [facility] Last Admin: 03/01/19 09:38 Dose: Not Given Senna/Docusate Sodium (Senna Plus) 1 tab PO BID PRN PRN Reason: Constipation Sodium Chloride (Saline Flush) 10 ml FLUSH ASDIRECTED PRN PRN Reason: Keep Vein Open Last Admin: 02/26/19 13:00 Dose: 10 ml Tramadol HCl (Ultram) 50 mg PO Q8H PRN PRN Reason: Pain Discontinued Medications Sodium Chloride (Normal Saline) 1,000 mls @ 100 mls/hr IV ASDIRECTED [facility] Last Admin: 02/28/19 05:13 Dose: 100 mls/hr Sodium Chloride (Normal Saline) 1,000 mls @ 500 mls/hr IV ASDIRECTED [facility] Stop: 02/27/19 18:31 Last Admin: 02/27/19 17:40 Dose: 500 mls/hr Labetalol HCl (Normodyne) 10 mg IVPUSH ONETIME ONE; Protocol Stop: 02/27/19 20:25 Last Admin: 02/27/19 21:12 Dose: 10 mg Metoprolol Tartrate (Lopressor) 5 mg IVPUSH ONETIME ONE Stop: 02/28/19 10:31 Last Admin: 02/28/19 11:22 Dose: 5 mg Morphine Sulfate (Morphine) 2 mg IVPUSH ONETIME ONE Stop: 02/26/19 12:25 Last Admin: 02/26/19 13:03 Dose: 2 mg Morphine Sulfate (Morphine) 1 mg IVPUSH ONETIME ONE Stop: 02/26/19 16:12 Last Admin: 02/27/19 08:28 Dose: Not Given Morphine Sulfate (Morphine) 2 mg IVPUSH Q2H PRN PRN Reason: Pain (severe 7-10) Last Admin: 02/27/19 04:01 Dose: 2 mg Oxycodone HCl (Oxycodone) 5 mg PO Q4H PRN PRN Reason: Pain Last Admin: 02/27/19 08:54 Dose: 5 mg - Exam Quality Assessment: Denies: Supplemental Oxygen General: Reports: Alert, Cooperative, No Acute Distress. Denies: Oriented HEENT: Reports: Pupils Equal Lungs: Reports: Clear to Auscultation, Normal Respiratory Effort Cardiovascular: Reports: Regular Rate, Irregular Rhythm GI/Abdominal Exam: Soft, No Distention Extremities: No Pedal Edema, Other (No hip pain with palpation on the left) Skin: Reports: Warm, Dry Psy/Mental Status: Reports: Alert. Denies: Agitated
== END 2019-03-01 13:20 | DRG 536 ==
LOC: JP.ED 10:51 → JP.MS 16:52
PROVIDERS: ADMIT Internal Medicine; ATTEND Internal Medicine
DX: S32.512A Fracture of superior rim of left pubis, initial encounter for closed fracture (principal); W18.30XA Fall on same level, unspecified, initial encounter; H54.7 Unspecified visual loss; M25.551 Pain in right hip; M25.552 Pain in left hip; I25.10 Atherosclerotic heart disease of native coronary artery without angina pectoris; E78.00 Pure hypercholesterolemia, unspecified; I50.9 Heart failure, unspecified; J44.9 Chronic obstructive pulmonary disease, unspecified; M19.90 Unspecified osteoarthritis, unspecified site; F41.9 Anxiety disorder, unspecified; F32.9 Major depressive disorder, single episode, unspecified; I70.0 Atherosclerosis of aorta; F02.80 Dementia in other diseases classified elsewhere, unspecified severity, without behavioral disturbance, psychotic disturbance, mood disturbance, and anxiety; G30.1 Alzheimer's disease with late onset; I48.2 Chronic atrial fibrillation; I11.0 Hypertensive heart disease with heart failure; Z95.0 Presence of cardiac pacemaker; Z88.8 Allergy status to other drugs, medicaments and biological substances; Z79.899 Other long term (current) drug therapy; Z79.01 Long term (current) use of anticoagulants
CPT/HCPCS: 36415; 72192; 73521; 80048; 85025; 85610; 96374; 96376; 99284; J2270; 73502-LT; 81001; 85027; A9270-GY; J0360; J1630; J2060; J2405; J3480; J3490; J7030

== ENCOUNTER 2019-03-02 14:32 | Emergency (ER) | payer MEDICARE ==
--- NOTE | 2019-03-02 16:11 | EDM.PDOC ---
ED HPI GENERAL MEDICAL PROBLEM - General Chief Complaint: General Stated Complaint: MEDICAL VIA [facility] Time Seen by Provider: 03/02/19 16:08 Source of Information: Reports: Patient History Limitations: Reports: No Limitations - History of Present Illness INITIAL COMMENTS - FREE TEXT/NARRATIVE: pt fell and hit the rt side of her head against the wall. She was not knocked out. She is on coumadin therapy. she is sleepy at thistime. she e was seen with a fractured pelvis on Monday. Onset: Today Duration: Hour(s): Location: Reports: Head, Other ( history of a pelvic fracture. ) Associated Symptoms: Reports: No Other Symptoms - Related Data Allergies Allergy/AdvReac Type Severity Reaction Status Date / Time RED Inhibitors Allergy Cannot Verified 02/26/19 11:17 Remember acetaminophen Allergy Cannot Verified 03/01/19 15:50 [From Coricidin] Remember amlodipine [From Norvasc] Allergy Cannot Verified 02/26/19 11:17 Remember chlorpheniramine Allergy Cannot Verified 02/26/19 11:17 [From Coricidin] Remember citalopram [From Celexa] Allergy Cannot Verified 02/26/19 11:17 Remember phenylephrine Allergy Cannot Verified 02/26/19 11:17 Remember phenylpropanolamine Allergy Cannot Verified 02/26/19 11:17 [From Coricidin] Remember sertraline [From Zoloft] Allergy Cannot Verified 02/26/19 11:17 Remember Home Meds: Home Meds Carvedilol [Coreg] 12.5 mg PO BID 08/23/18 [History] Cholecalciferol (Vitamin D3) [Vitamin D3] 1,000 unit PO DAILY 08/23/18 [History] FLUoxetine [PROzac] 20 mg PO DAILY 08/23/18 [History] Lactose-Reduced Food [Ensure] 118 ml PO BID 08/23/18 [History] Magnesium Hydroxide [Milk of Magnesia] 30 ml PO DAILY PRN 08/23/18 [History] Pravastatin Sodium [Pravastatin (Pravachol)] 1 tab PO DAILY 08/23/18 [History] Warfarin [Coumadin] 2.5 mg PO ASDIRECTED 08/23/18 [History] Warfarin [Coumadin] 3.75 mg PO ASDIRECTED 08/23/18 [History] Albuterol [Ventolin HFA] 1 - 2 puff .XX Q4H PRN 02/26/19 [History] Acetaminophen [Tylenol Extra Strength] 1,000 mg PO TID #200 tablet 03/01/19 [Rx] Melatonin 10 mg PO BEDTIME #30 tablet 03/01/19 [Rx] traMADol [Ultram] 50 mg PO Q8H PRN #45 tablet 03/01/19 [Rx] Past Medical History HEENT History: Reports: Impaired Vision Cardiovascular History: Reports: Afib, CAD, Heart Failure, High Cholesterol, Pacemaker, Other (See Below) Other Cardiovascular History: thoracic aortic atherosclerosis Respiratory History: Reports: COPD Genitourinary History: Reports: Other (See Below) Other Genitourinary History: kidney disease HIV NURSE History: Reports: Musculoskeletal History: Reports: Osteoarthritis Psychiatric History: Reports: Anxiety, Dementia, Depression - Infectious Disease History Infectious Disease History: Reports: C-Difficile - Past Surgical History GI Surgical History: Reports: Colonoscopy Social & Family History - Family History Musculoskeletal: Reports: RA - Tobacco Use Smoking Status *Q: Unknown Ever Smoked - Caffeine Use Caffeine Use: Reports: Coffee, Soda Other Caffeine Use: Drink 3 cups of coffee a day. Rarely drink soda, but will on occasion - Recreational Drug Use Recreational Drug Use: No ED ROS GENERAL - Review of Systems Review Of Systems: See Below Constitutional: Reports: No Symptoms HEENT: Reports: No Symptoms Respiratory: Reports: No Symptoms Cardiovascular: Reports: No Symptoms Endocrine: Reports: No Symptoms GI/Abdominal: Reports: No Symptoms : Reports: No Symptoms Neurological: Reports: Other (p did hit the rt side of her head when she fell. ) Psychiatric: Reports: No Symptoms ED EXAM, GENERAL - Physical Exam Exam: See Below Free Text/Narrative:: pt arrived very sleepy but she has a history of alot of periods where she sleeps very soundly. Exam Limited By: No Limitations General Appearance: Alert, No Apparent Distress, Anxious, Other (pupilsequal and reactive. ) Ears: Normal TMs Nose: Normal Inspection Throat/Mouth: Normal Inspection Head: Atraumatic, Other ( there was no definite swelling or hematoma formation) Neck: Normal Inspection Respiratory/Chest: No Respiratory Distress Cardiovascular: Regular Rate, Rhythm GI/Abdominal: Soft, Non-Tender (Female) Exam: Deferred Rectal (Female) Exam: Deferred Back Exam: Normal Inspection Extremities: Normal Inspection, Other (pt has a known pelvic fracture. ) Neurological: Alert, Other ( pt has dementia and was very sleepy when she first arrived . Later she woke up and was asking for juice. ) Course - Vital Signs Last Recorded V/S: Last Vital Signs Temp 35.8 C 03/02/19 14:50 Pulse 92 03/02/19 14:50 Resp 19 03/02/19 14:50 BP 164/103 H 03/02/19 14:50 Pulse Ox 94 L 03/02/19 14:50 - Orders/Labs/Meds Labs: Laboratory Tests 03/02/19 03/02/19 03/02/19 Range/Units 15:17 15:25 15:25 WBC 12.0 H (4.5-11.0) K/uL RBC 3.26 L (3.30-5.50) M/uL Hgb 9.8 L (12.0-15.0) g/dL Hct 31.5 L (36.0-48.0) % MCV 97 (80-98) fL MCH 30 (27-31) pg MCHC 31 L (32-36) % Plt Count 158 (150-400) K/uL Neut % (Auto) 54 (36-66) % Lymph % (Auto) 34 (24-44) % Russell % (Auto) 11 H (2-6) % Eos % (Auto) 1 L (2-4) % Baso % (Auto) 0 (0-1) % PT 28.3 H (9.5-12.0) sec INR 2.72 H (0.80-1.20) Sodium 145 (140-148) mmol/L Potassium 4.0 (3.6-5.2) mmol/L Chloride 110 H (100-108) mmol/L Carbon Dioxide 23 (21-32) mmol/L Anion Gap 16.0 H (5.0-14.0) mmol/L BUN 44 H D (7-18) mg/dL Creatinine 1.1 H (0.6-1.0) mg/dL Est Cr Clr Drug Dosing 23.59 mL/min Estimated GFR (MDRD) 47 L (>60) Glucose 117 H (74-106) mg/dL Calcium 8.8 (8.5-10.1) mg/dL Total Bilirubin 0.8 (0.2-1.0) mg/dL AST 32 (15-37) U/L ALT 19 (12-78) U/L Alkaline Phosphatase 64 (46-116) U/L Total Protein 6.4 (6.4-8.2) g/dL Albumin 3.3 L (3.4-5.0) g/dL Globulin 3.1 (2.3-3.5) g/dL Albumin/Globulin Ratio 1.1 L (1.2-2.2) - Re-Assessments/Exams Free Text/Narrative Re-Assessment/Exam: 03/02/19 16:55 inr was ok, her cat scan of the head was unchanged. Departure - Departure Time of Disposition: 16:50 Disposition: Home, Self-Care 01 Condition: Fair Clinical Impression: Contusion of head, History of pelvic fracture, Atrial fibrillation - Discharge Information Instructions: Contusion, [id number] Referrals: Mag Robb PA [Primary Care Provider] - Forms: ED Department Discharge Care Plan Goals: continue same meds. observe closely to avoid further falls.
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
== END 2019-03-02 18:01 | disposition home or self-care (01) ==
LOC: JP.ED 14:32
DX: S00.93XA Contusion of unspecified part of head, initial encounter (principal); I48.91 Unspecified atrial fibrillation; I25.10 Atherosclerotic heart disease of native coronary artery without angina pectoris; I50.9 Heart failure, unspecified; E78.00 Pure hypercholesterolemia, unspecified; Z95.0 Presence of cardiac pacemaker; J44.9 Chronic obstructive pulmonary disease, unspecified; F41.9 Anxiety disorder, unspecified; F32.9 Major depressive disorder, single episode, unspecified; Z88.8 Allergy status to other drugs, medicaments and biological substances; Z79.899 Other long term (current) drug therapy; Z79.01 Long term (current) use of anticoagulants; W22.01XA Walked into wall, initial encounter; Z87.81 Personal history of (healed) traumatic fracture
CPT/HCPCS: 36415; 70450; 80053; 85025; 85610; 99282; 99284-25